=== PATIENT | female | born 1965 | race African-American/Black ===

== ENCOUNTER 2017-01-05 14:44 | Emergency (ER) | payer BC ==
[2017-01-05 14:52] VITALS: BP 149/101; PULSE 94; TEMP 98.3; BMI 33.9
--- NOTE | 2017-01-05 15:49 | PDOC ---
History of Present Illness - General Chief Complaint: Sore Throat Stated Complaint: Throat PAIN Time Seen by Provider: 01/05/17 15:02 History Source: Patient Exam Limitations: No Limitations - History of Present Illness Initial Comments: 01/05/17 15:46 51 yr female with c/o sore throat, for 3 days no fever. Pt states she has a history of post nasal drip has used flonase in the past and it has helped her symptoms. no fever or chills no cough or vomiting. Past History - Past Medical History Allergies/Adverse Reactions: Allergies Allergy/AdvReac Type Severity Reaction Status Date / Time No Known Allergies Allergy Verified 01/05/17 14:46 Home Medications: Ambulatory Orders Mesalamine [Lialda] 1.2 gm PO DAILY 03/16/16 Fluticasone Prop 0.05% Nasal [Flonase -] 1 - 2 spray NS DAILY #1 spray.pump Anemia: Yes (HX OF IRON DEFICIENCY) Asthma: No Cancer: Yes (NECK AREA - BENIGN, RADIATION X 5 WEEKS) Cardiac Disorders: No CVA: No COPD: No CHF: No Dementia: No Diabetes: (IMPAIRED GLUCOSE TOLERANCE) GI Disorders: Yes (CROHN'S COLITIS, COLON POLYPS, HEMORRHOIDS) Disorders: (H/O MENORRHAGIA) HTN: Yes Hypercholesterolemia: Yes Seizures: No Thyroid Disease: No - Surgical History Abdominal Surgery: No Appendectomy: No Cardiac Surgery: No Cholecystectomy: No Lung Surgery: No Neurologic Surgery: No Orthopedic Surgery: Yes (RT KNEE) - Immunization History Immunization Up to Date: Yes (no flu) - Psycho/Social/Smoking Cessation Hx Anxiety: No Suicidal Ideation: No Smoking Status: Yes Smoking History: Former smoker Have you smoked in the past 12 months: No Number of Cigarettes Smoked Daily: 0 Information on smoking cessation initiated: No 'Breaking Loose' booklet given: 04/14/16 Hx Alcohol Use: No Drug/Substance Use Hx: No Substance Use Type: None Hx Substance Use Treatment: No Review of Systems - Review of Systems Able to Perform ROS?: Yes Is the patient limited Turkish proficient: No Constitutional: No: Symptoms Reported HEENTM: Yes: Throat Pain Respiratory: No: Symptoms reported Cardiac (ROS): No: Symptoms Reported ABD/GI: No: Symptoms Reported : No: Symptoms Reported Musculoskeletal: No: Symptoms Reported Integumentary: No: Symptoms Reported Neurological: No: Symptoms reported *Physical Exam - Vital Signs Last Vital Signs Temp Pulse Resp BP Pulse Ox 98.3 F 94 H 20 149/101 95 01/05/17 14:46 01/05/17 14:46 01/05/17 14:46 01/05/17 14:46 01/05/17 14:46 - Physical Exam General Appearance: Yes: Nourished, Appropriately Dressed HEENT: positive: EOMI, AKASH, TMs Normal, Pharynx Normal Neck: positive: Supple Respiratory/Chest: positive: Lungs Clear, Normal Breath Sounds Cardiovascular: positive: Regular Rhythm, Regular Rate Gastrointestinal/Abdominal: positive: Normal Bowel Sounds, Soft Musculoskeletal: positive: Normal Inspection Extremity: positive: Normal Capillary Refill, Normal Inspection, Normal Range of Motion Integumentary: positive: Normal Color, Dry, Warm Neurologic: positive: Fully Oriented, Alert, Normal Mood/Affect, Normal Response , Motor Strength 5/5 Medical Decision Making - Medical Decision Making 01/05/17 15:48 cc: sore throat afebrile, no cough or chest pain will check rapid strep will prescribe flonase *DC/Admit/Observation/Transfer Diagnosis at time of Disposition: Post-nasal drip - Discharge Dispostion Disposition: HOME Condition at time of disposition: Good - Prescriptions Prescriptions: Fluticasone Prop 0.05% Nasal [Flonase -] 1 - 2 spray NS DAILY #1 spray.pump - Referrals Referrals: Frances Sorensen MD [Primary Care Provider] - - Patient Instructions Additional Instructions: take flonase as directed gargle with warm salt water 4-5 times a day follow with ENT for follow up
== END 2017-01-05 16:59 | disposition home or self-care (01) ==
LOC: JERFT 14:44
DX: R09.82 Postnasal drip (principal); I10 Essential (primary) hypertension; E78.00 Pure hypercholesterolemia, unspecified; R73.02 Impaired glucose tolerance (oral); Z86.018 Personal history of other benign neoplasm; Z86.2 Personal history of diseases of the blood and blood-forming organs and certain disorders involving the immune mechanism
CPT/HCPCS: 87070; 87430; 99281-25

== ENCOUNTER 2017-06-02 15:21 | Emergency (ER) | payer BC ==
[2017-06-02 15:33] VITALS: BP 172/80; PULSE 91; TEMP 98.3; BMI 32.8
--- NOTE | 2017-06-02 16:29 | PDOC ---
History of Present Illness - General Chief Complaint: Pain, Acute Stated Complaint: LEFT LEG PAIN Time Seen by Provider: 06/02/17 15:49 History Source: Patient Exam Limitations: No Limitations - History of Present Illness Initial Comments: 06/02/17 16:25 This is a 52yo woman with PMH Crohn's disease, HTN and HLD who presents with pain to left anterolateral allan since 08/05/16. She denies trauma. She has had multiple evaluations for same c/o including 3 ED visits and a fisher sponge hooking. Pain was relieved with orthotics and Voltaren gel. She stopped taking Voltaren gel after 1 use but states it worked well when she used it. Occurred: reports: other (started 08/05/16) Lower Extremity Pain Location: left: leg (anterolateral) Method of Injury: Yes: unknown Modifying Factors: improves with: None Past History - Past Medical History Allergies/Adverse Reactions: Allergies Allergy/AdvReac Type Severity Reaction Status Date / Time No Known Allergies Allergy Verified 06/02/17 15:26 Home Medications: Ambulatory Orders Mesalamine [Lialda] 1.2 gm PO DAILY 03/16/16 Fluticasone Prop 0.05% Nasal [Flonase -] 1 - 2 spray NS DAILY #1 spray.pump Anemia: Yes (HX OF IRON DEFICIENCY) Asthma: No Cancer: Yes (NECK AREA - BENIGN, RADIATION X 5 WEEKS) Cardiac Disorders: No CVA: No COPD: No CHF: No Dementia: No Diabetes: (IMPAIRED GLUCOSE TOLERANCE) GI Disorders: Yes (CROHN'S COLITIS, COLON POLYPS, HEMORRHOIDS) Disorders: (H/O MENORRHAGIA) HTN: Yes Hypercholesterolemia: Yes Seizures: No Thyroid Disease: No - Surgical History Abdominal Surgery: No Appendectomy: No Cardiac Surgery: No Cholecystectomy: No Lung Surgery: No Neurologic Surgery: No Orthopedic Surgery: Yes (RT KNEE) - Immunization History Immunization Up to Date: Yes (no flu) - Psycho/Social/Smoking Cessation Hx Anxiety: No Suicidal Ideation: No Smoking Status: Yes Smoking History: Former smoker Have you smoked in the past 12 months: No Number of Cigarettes Smoked Daily: 2 Information on smoking cessation initiated: No 'Breaking Loose' booklet given: 04/14/16 Hx Alcohol Use: No Drug/Substance Use Hx: No Substance Use Type: None Hx Substance Use Treatment: No Review of Systems - Review of Systems Able to Perform ROS?: Yes Is the patient limited Swedish proficient: No Constitutional: No: Symptoms Reported HEENTM: No: Symptoms Reported Respiratory: No: Symptoms reported Cardiac (ROS): No: Symptoms Reported ABD/GI: No: Symptoms Reported : No: Symptoms Reported Musculoskeletal: Yes: Other (left allan pain) Integumentary: No: Symptoms Reported Neurological: No: Symptoms reported *Physical Exam - Vital Signs Last Vital Signs Temp Pulse Resp BP Pulse Ox 98.3 F 91 H 18 172/80 100 06/02/17 15:26 06/02/17 15:26 06/02/17 15:26 06/02/17 15:26 06/02/17 15:26 - Physical Exam General Appearance: Yes: Appropriately Dressed. No: Apparent Distress HEENT: positive: AKASH, Normal Voice Neck: positive: Trachea midline, Supple Respiratory/Chest: positive: Lungs Clear. negative: Respiratory Distress Cardiovascular: positive: Regular Rhythm, Regular Rate, S1, S2. negative: Murmur Gastrointestinal/Abdominal: positive: Normal Bowel Sounds, Soft. negative: Tender, Organomegaly Musculoskeletal: positive: Normal Inspection. negative: CVA Tenderness Extremity: positive: Normal Capillary Refill. negative: Calf Tenderness ( negative Sharyn's) Integumentary: positive: Normal Color, Dry, Warm Neurologic: positive: yeast maker II-XII NML intact, Fully Oriented, Alert, Motor Strength 5/5. negative: Normal Mood/Affect Medical Decision Making - Medical Decision Making 06/02/17 16:28 A: This is a 52yo woman with PMH HTN and HLD who presents with pain to left anterolateral allan since 08/05/16. She denies trauma. She has had multiple evaluations for same c/o including 3 ED visits and a fisher sponge hooking. Pain was relieved with orthotics and Voltaren gel. She stopped taking Voltaren gel after 1 use but states it worked well when she used it. P: -continue Voltaren gel -discharge 06/02/17 16:34 *DC/Admit/Observation/Transfer Diagnosis at time of Disposition: Allan splints Qualifiers: Encounter type: subsequent encounter Laterality: left Qualified Code(s): S86.892D - Other injury of other muscle(s) and tendon(s) at lower leg level, left leg, subsequent encounter - Discharge Dispostion Disposition: HOME Condition at time of disposition: Stable Admit: No - Patient Instructions Printed Discharge Instructions: Medial Tibial Stress Syndrome Additional Instructions: Use previously prescribed Voltaren gel. Ice affected area as needed. Follow up with Dr. Youngblood. Return to ED for any worsening symptoms or any other reason.
== END 2017-06-02 16:41 | disposition home or self-care (01) ==
LOC: JERFT 15:21
DX: S86.892D Other injury of other muscle(s) and tendon(s) at lower leg level, left leg, subsequent encounter (principal); I10 Essential (primary) hypertension; E78.5 Hyperlipidemia, unspecified; K50.90 Crohn's disease, unspecified, without complications; X58.XXXA Exposure to other specified factors, initial encounter; Y93.9 Activity, unspecified; Y92.9 Unspecified place or not applicable; D50.8 Other iron deficiency anemias; E78.00 Pure hypercholesterolemia, unspecified
CPT/HCPCS: 99281-25

== ENCOUNTER 2017-12-20 11:22 | Emergency (ER) | payer BC ==
[2017-12-20 11:48] VITALS: BP 134/94; PULSE 80; TEMP 98.7; BMI 33.0
--- NOTE | 2017-12-20 12:28 | PDOC ---
History of Present Illness - General Chief Complaint: Sore Throat Stated Complaint: THROAT PAIN Time Seen by Provider: 12/20/17 12:06 History Source: Patient Exam Limitations: No Limitations - History of Present Illness Initial Comments: 12/20/17 12:23 Is a 52-year-old woman with past medical history of Crohn's and hypertension who presents to the emergency department with 1 week of sore throat which she has been controlling with hydration and gthv-nik-[id number] medications. 2 weeks ago the pain became slightly worse and was no longer controlled with OTC medication. She started coughing approximately 2 days ago which is been wet and nonproductive. She used her husbands previously prescribed cough syrup but is unaware of formulation of cough syrup. This did not help with expectoration. She denies fevers, chills, headaches, shortness of breath, chest pain, abdominal pain, nausea, vomiting, diarrhea. PMH: Crohn's disease, hypertension, hyperlipidemia PSH: Remote right knee arthroscopy PMD: [employer] Occupation: legislative aide Past History - Past Medical History Allergies/Adverse Reactions: Allergies Allergy/AdvReac Type Severity Reaction Status Date / Time No Known Allergies Allergy Verified 12/20/17 11:48 Home Medications: Ambulatory Orders Mesalamine [Lialda] 1.2 gm PO DAILY 03/16/16 Fluticasone Prop 0.05% Nasal [Flonase -] 1 - 2 spray NS DAILY #1 spray.pump Amlodipine Besylate 10 mg PO ASDIR 12/20/17 Anemia: Yes (HX OF IRON DEFICIENCY) Asthma: No Cancer: Yes (NECK AREA - BENIGN, RADIATION X 5 WEEKS) Cardiac Disorders: No CVA: No COPD: No CHF: No Dementia: No Diabetes: (IMPAIRED GLUCOSE TOLERANCE) GI Disorders: Yes (CROHN'S COLITIS, COLON POLYPS, HEMORRHOIDS) Disorders: (H/O MENORRHAGIA) HTN: Yes Hypercholesterolemia: Yes Seizures: No Thyroid Disease: No - Surgical History Abdominal Surgery: No Appendectomy: No Cardiac Surgery: No Cholecystectomy: No Lung Surgery: No Neurologic Surgery: No Orthopedic Surgery: Yes (RT KNEE) - Immunization History Immunization Up to Date: Yes (no flu) - Suicide/Smoking/Psychosocial Hx Smoking Status: Yes Smoking History: Never smoked Have you smoked in the past 12 months: No Number of Cigarettes Smoked Daily: 2 Information on smoking cessation initiated: No 'Breaking Loose' booklet given: 04/14/16 Hx Alcohol Use: No Drug/Substance Use Hx: No Substance Use Type: None Hx Substance Use Treatment: No Review of Systems - Review of Systems Able to Perform ROS?: Yes Is the patient limited Bangladeshi proficient: No Constitutional: No: Symptoms Reported HEENTM: Yes: See HPI Respiratory: Yes: See HPI Cardiac (ROS): No: Symptoms Reported ABD/GI: No: Symptoms Reported : No: Symptoms Reported Musculoskeletal: No: Symptoms Reported Integumentary: No: Symptoms Reported Neurological: No: Symptoms reported Endocrine: No: Symptoms Reported Hematologic/Lymphatic: No: Symptoms Reported *Physical Exam - Vital Signs Last Vital Signs Temp Pulse Resp BP Pulse Ox 98.7 F 80 17 134/94 98 12/20/17 11:44 12/20/17 11:44 12/20/17 11:44 12/20/17 11:44 12/20/17 11:44 - Physical Exam General Appearance: Yes: Appropriately Dressed HEENT: positive: Normal ENT Inspection Neck: positive: Trachea midline, Supple. negative: Stridor Respiratory/Chest: positive: Lungs Clear, Normal Breath Sounds. negative: Respiratory Distress, Accessory Muscle Use Cardiovascular: positive: Regular Rhythm, Regular Rate, S1, S2. negative: Edema Gastrointestinal/Abdominal: positive: Normal Bowel Sounds, Soft. negative: Tender Musculoskeletal: positive: Normal Inspection. negative: CVA Tenderness Integumentary: positive: Normal Color, Dry, Warm Neurologic: positive: Fully Oriented, Alert, Normal Response, Motor Strength 5/5 Medical Decision Making - Medical Decision Making 12/20/17 12:28 A/P: 52-year-old woman with past medical history of Crohn's, hypertension, hyperlipidemia who presents with 1 week of sore throat and wet nonproductive cough. Patient complaining of inability to expectorate. Oropharynx clear without erythema or exudates noted. No sinus tenderness appreciated. No stridor appreciated Lungs clear to auscultation bilaterally. Discharge home *DC/Admit/Observation/Transfer Diagnosis at time of Disposition: Upper respiratory infection Qualifiers: URI type: unspecified viral URI Qualified Code(s): J06.9 - Acute upper respiratory infection, unspecified - Discharge Dispostion Disposition: HOME Condition at time of disposition: Stable Admit: No - Referrals Referrals: Ariane Murdock MD [Staff Physician] - - Patient Instructions Printed Discharge Instructions: DI for Viral Upper Respiratory Infection -- Adult Additional Instructions: Rest, drink lots of fluids: Teas, water, soups, Pedialyte Saltwater gargles Steamy showers/seem to face break up mucus Avoid contact with others until fevers and cough resolved Lots of handwashing and good hygiene Continue ckza-[id number] medications for symptomatic relief Tylenol or Motrin for fever and pain Mucinex 1200mg every 12 hours as needed for mucous. Followup with private physician in one to 2 days as needed Return to emergency department for worsened symptoms, fevers, dehydration - Post Discharge Activity Forms/Work/School Notes: Back to Work
== END 2017-12-20 12:35 | disposition home or self-care (01) ==
LOC: JERFT 11:22
DX: J06.9 Acute upper respiratory infection, unspecified (principal); I10 Essential (primary) hypertension; E78.5 Hyperlipidemia, unspecified; K50.90 Crohn's disease, unspecified, without complications
CPT/HCPCS: 99281-25

== ENCOUNTER 2019-09-18 12:08 | Emergency (ER) | payer BC ==
[2019-09-18 12:17] VITALS: BP 134/70; PULSE 62; TEMP 97.6; BMI 33.7
--- NOTE | 2019-09-18 13:07 | PDOC ---
History of Present Illness - General Chief Complaint: Sore Throat Stated Complaint: COLD SYMPTOMS/COUGHING Time Seen by Provider: 09/18/19 12:15 - History of Present Illness Initial Comments: 09/18/19 13:05 54-year-old female with a past medical history of hypertension dyslipidemia presents for evaluation of cough without systemic symptoms x3 days she also claims of sore throat Past History - Past Medical History Allergies/Adverse Reactions: Allergies Allergy/AdvReac Type Severity Reaction Status Date / Time No Known Allergies Allergy Verified 09/18/19 12:17 Home Medications: Ambulatory Orders Mesalamine [Lialda] 1.2 gm PO DAILY 03/16/16 Amlodipine Besylate 5 mg PO ASDIR 12/20/17 Pravastatin Sodium 10 mg PO DAILY 01/19/18 Tramadol HCl 50 mg PO QID PRN #20 tablet MDD 4 01/19/18 Anemia: Yes (HX OF IRON DEFICIENCY) Asthma: No Cancer: Yes (NECK AREA - BENIGN, RADIATION X 5 WEEKS) Cardiac Disorders: No CVA: No COPD: No CHF: No Dementia: No Diabetes: No (IMPAIRED GLUCOSE TOLERANCE) GI Disorders: Yes (CROHN'S COLITIS, COLON POLYPS, HEMORRHOIDS) Disorders: (H/O MENORRHAGIA) HTN: Yes Hypercholesterolemia: Yes Liver Disease: No Seizures: No Thyroid Disease: No - Surgical History Abdominal Surgery: No Appendectomy: No Cardiac Surgery: No Cholecystectomy: No Lung Surgery: No Neurologic Surgery: No Orthopedic Surgery: Yes (RT KNEE) - Immunization History Immunization Up to Date: Yes (no flu) - Psycho Social/Smoking Cessation Hx Smoking Status: Yes Smoking History: Current every day smoker Have you smoked in the past 12 months: No Number of Cigarettes Smoked Daily: 5 Information on smoking cessation initiated: Yes 'Breaking Loose' booklet given: 04/14/16 Hx Alcohol Use: No Drug/Substance Use Hx: No Substance Use Type: Alcohol, Marijuana Hx Substance Use Treatment: No Review of Systems - Review of Systems Constitutional: No: Fever Respiratory: Yes: Cough *Physical Exam - Vital Signs Last Vital Signs Temp Pulse Resp BP Pulse Ox 97.6 F 62 19 134/70 98 09/18/19 12:14 09/18/19 12:14 09/18/19 12:14 09/18/19 12:14 09/18/19 12:14 - Physical Exam Comments: 09/18/19 13:06 GENERAL: The patient is awake, alert, and fully oriented, in no acute distress. HEAD: Normal with no signs of trauma. EYES: sclera anicteric, conjunctiva clear. ENT: Ears normal NECK: Normal range of motion LUNGS: Breath sounds equal, clear to auscultation bilaterally. No wheezes, and no crackles. HEART: S1 and S2 without murmur, rub or gallop. ABDOMEN: Soft, nontender, normoactive bowel sounds. No guarding, no rebound. No masses. EXTREMITIES: Normal range of motion, no edema. No clubbing or cyanosis. No cords, erythema, or tenderness. NEUROLOGICAL: Cranial nerves II through XII grossly intact. Normal speech, normal gait. PSYCH: Normal mood, normal affect. SKIN: Warm, Dry, normal turgor, no rashes or lesions noted. ED Treatment Course - RADIOLOGY Radiology Studies Ordered: Category Date Time Status CHEST PA & LAT [RAD] Stat Radiology 09/18/19 12:45 Taken Medical Decision Making - Medical Decision Making 09/18/19 13:18 Chest x-ray clear most likely viral upper respiratory infection supportive care follow-up with PCP Discharge - Discharge Information Problems reviewed: Yes Clinical Impression/Diagnosis: Upper respiratory infection Condition: Stable Disposition: HOME - Admission No - Follow up/Referral Referrals: Kiesha Rocha MD [Primary Care Provider] - - Patient Discharge Instructions Patient Printed Discharge Instructions: Common Cold Additional Instructions: Return to the emergency room for worsening symptoms. Follow-up with your primary care physician in 1 to 2 days for further evaluation and treatment options. - Post Discharge Activity
== END 2019-09-18 13:23 | disposition home or self-care (01) ==
LOC: JERFT 12:08
DX: J06.9 Acute upper respiratory infection, unspecified (principal); F17.210 Nicotine dependence, cigarettes, uncomplicated; I10 Essential (primary) hypertension
CPT/HCPCS: 71046-TC-FY; 99281-25

== ENCOUNTER 2019-09-26 15:39 | Emergency (ER) | payer BC ==
[2019-09-26 15:52] VITALS: BP 169/95; PULSE 76; TEMP 98.2; BMI 33.7
--- NOTE | 2019-09-26 16:31 | PDOC ---
History of Present Illness - General Chief Complaint: Cold Symptoms Stated Complaint: COUGHING/ GLANDS SWOLLEN Time Seen by Provider: 09/26/19 15:56 - History of Present Illness Initial Comments: 09/26/19 16:25 CHIEF COMPLAINT: cough HISTORY OF PRESENT ILLNESS: 54 yo F with hx of Crohn's, HTN and HLD presents to fast track with persistent cough. Patient was seen in this ED 8 days ago and diagnosed with a viral URI but reports her symptoms have not resolved even after taking Mucinex. Patient describes cough as dry but that her phlegm is "trying to come out." Patient denies any systemic symptoms including fever, chills, vomiting diarrhea. No recent travel or sick contacts. PAST MEDICAL HISTORY: Denies past medical history FAMILY HISTORY: Denies SOCIAL HISTORY: Denies tobacco, alcohol, illicit drug use. SURGICAL HISTORY: Denies ALLERGIES: No known drug allergies REVIEW OF SYSTEMS General/Constitutional: Denies fever or chills. Denies weakness, weight change. HEENT: Denies change in vision. Denies ear pain or discharge. Denies sore throat. Cardiovascular: Denies chest pain or shortness of breath. Respiratory: Cough x 9 days. Gastrointestinal: Denies nausea, vomiting, diarrhea or constipation. Denies rectal bleeding. Genitourinary: Denies dysuria, frequency, or change in urination. Musculoskeletal: Denies joint or muscle swelling or pain. Denies neck or back pain. Skin and breasts: Denies rash or easy bruising. Neurologic: Denies headache, vertigo, loss of consciousness, or loss of sensation. Psychiatric: Denies depression or anxiety. PHYSICAL EXAM General Appearance: Well-appearing, appropriately dressed. No apparent distress , no intoxication. HEENT: EOMI, PERRLA, normal ENT inspection, normal voice, TMs normal, pharynx normal. No conjunctival pallor. No photophobia, scleral icterus. Neck: Supple. Trachea midline. No tenderness, rigidity, carotid bruit, stridor , lymphadenopathy, or thyromegaly. Respiratory/Chest: Lungs CTAB. No shortness of breath, chest tenderness, respiratory distress, accessory muscle use. No crackles, rales, rhonchi, stridor , wheezing, dullness Cardiovascular: RRR. S1, S2. No JVD, murmur, bradycardia, tachycardia. Vascular Pulses: Dorsalis-Pedis (R): 2+, Dorsalis-Pedis (L): 2+ Gastrointestinal/Abdominal: Normal bowel sounds. Abdomen soft, non-distended. No tenderness or rebound tenderness. No organomegaly, pulsatile mass, guarding , hernia, hepatomegaly, splenomegaly. Lymphatic: No adenopathy, tenderness. Musculoskeletal/Extremities: Normal inspection. FROM of all extremities, normal capillary refill. Pelvis Stable. No CVA tenderness. No tenderness to extremities, pedal edema, swelling, erythema or deformity. Integumentary: Appropriate color, dry, warm. No cyanosis, erythema, jaundice or rash Neurologic: technician plant and maintenance II-XII intact. Fully oriented, alert. Appropriate mood/affect. Motor strength 5/5. No appreciable EOM palsy, facial droop or sensory deficit. 09/26/19 16:36 Past History - Past Medical History Allergies/Adverse Reactions: Allergies Allergy/AdvReac Type Severity Reaction Status Date / Time No Known Allergies Allergy Verified 09/26/19 15:48 Home Medications: Ambulatory Orders Mesalamine [Lialda] 1.2 gm PO DAILY 03/16/16 Amlodipine Besylate 5 mg PO ASDIR 12/20/17 Pravastatin Sodium 20 mg PO DAILY 01/19/18 Ergocalciferol (Vitamin D2) [Vitamin D2] 50,000 unit PO WEEKLY 09/18/19 Azithromycin [Zithromax 250mg Tablets -] 250 mg PO UTDICT #6 tab 09/26/19 Benzonatate [Tessalon Pearls -] 100 mg PO TID #21 capsule 09/26/19 Phenylephrine HCl [Sinus PE Decongestant] 10 mg PO TID #15 tablet 09/26/19 Anemia: Yes (HX OF IRON DEFICIENCY) Asthma: No Cancer: Yes (NECK AREA - BENIGN, RADIATION X 5 WEEKS) Cardiac Disorders: No CVA: No COPD: No CHF: No Dementia: No Diabetes: No (IMPAIRED GLUCOSE TOLERANCE) GI Disorders: Yes (CROHN'S COLITIS, COLON POLYPS, HEMORRHOIDS) Disorders: (H/O MENORRHAGIA) HTN: Yes Hypercholesterolemia: Yes Liver Disease: No Seizures: No Thyroid Disease: No - Surgical History Abdominal Surgery: No Appendectomy: No Cardiac Surgery: No Cholecystectomy: No Lung Surgery: No Neurologic Surgery: No Orthopedic Surgery: Yes (RT KNEE) - Immunization History Immunization Up to Date: Yes (no flu) - Psycho Social/Smoking Cessation Hx Smoking Status: Yes Smoking History: Never smoked Have you smoked in the past 12 months: No Number of Cigarettes Smoked Daily: 5 'Breaking Loose' booklet given: 04/14/16 Hx Alcohol Use: No Drug/Substance Use Hx: No Substance Use Type: Alcohol, Marijuana Hx Substance Use Treatment: No *Physical Exam - Vital Signs Last Vital Signs Temp Pulse Resp BP Pulse Ox 98.2 F 76 18 169/95 97 09/26/19 15:44 09/26/19 15:44 09/26/19 15:44 09/26/19 15:44 09/26/19 15:44 Discharge - Discharge Information Problems reviewed: Yes Clinical Impression/Diagnosis: Upper respiratory infection Qualifiers: URI type: unspecified URI Qualified Code(s): J06.9 - Acute upper respiratory infection, unspecified Condition: Stable Disposition: HOME - Admission No - Additional Discharge Information Prescriptions: Azithromycin [Zithromax 250mg Tablets -] 250 mg PO UTDICT #6 tab Benzonatate [Tessalon Pearls -] 100 mg PO TID #21 capsule Phenylephrine HCl [Sinus PE Decongestant] 10 mg PO TID #15 tablet - Follow up/Referral Referrals: Kiesha Rocha MD [Primary Care Provider] - - Patient Discharge Instructions Patient Printed Discharge Instructions: DI for Cough -- Adult Additional Instructions: Please take medications as prescribed. As discussed, it is not recommended to start the antibiotics unless your symptoms persist for another 3-5 days. If you develop fever, chills, vomiting, diarrhea, or any new or worsening symptoms, please return to the ER. - Post Discharge Activity
== END 2019-09-26 16:41 | disposition home or self-care (01) ==
LOC: JERFT 15:39 → JER 15:39 → JERFT 16:41
DX: J06.9 Acute upper respiratory infection, unspecified (principal); B97.89 Other viral agents as the cause of diseases classified elsewhere; I10 Essential (primary) hypertension; E78.5 Hyperlipidemia, unspecified; R73.02 Impaired glucose tolerance (oral); D50.9 Iron deficiency anemia, unspecified; Z87.19 Personal history of other diseases of the digestive system; Z85.89 Personal history of malignant neoplasm of other organs and systems; Z92.3 Personal history of irradiation; Z87.42 Personal history of other diseases of the female genital tract
CPT/HCPCS: 99281-25

== ENCOUNTER 2019-10-07 05:04 | Day surgery (SDC) | payer BC ==
[2019-09-18 17:52] VITALS: BMI 33.7
[2019-10-07] MEDS ORDERED: PROMETHAZINE HCL 25 MG/1 ML VIAL IVPUSH PRN (08:09)
[2019-10-07] MEDS ORDERED: oxyCODONE HCL 5 MG TABLET PO PRN (08:09)
[2019-10-07] MEDS ORDERED: ONDANSETRON 4 MG/2 ML VIAL IVPUSH PRN (08:09)
[2019-10-07] MEDS ORDERED: LACTATED RINGERS SOLUTION 1,000 ML IV SCH (08:15)
[2019-10-07 08:29] VITALS: BP 141/98; PULSE 71; TEMP 98.1
== END 2019-10-07 09:17 | disposition home or self-care (01) ==
LOC: JASU-SURG 05:04
PROVIDERS: ATTEND Obstetrics & Gynecology
DX: Z53.8 Procedure and treatment not carried out for other reasons (principal)
CPT/HCPCS: 86850; 86900; 86901

== ENCOUNTER 2019-10-21 05:25 | Day surgery (SDC) | payer BC ==
[2019-10-15 15:52] VITALS: BMI 33.7
[2019-10-21] MEDS ORDERED: SUCCINYLCHOLINE CHLORIDE 200 MG/10 ML SYRINGE ONE (07:42)
[2019-10-21] MEDS ORDERED: PROPOFOL 20 ML ONE ×2 (07:42)
--- NOTE | 2019-10-21 08:21 | HP ---
Admitting History and Physical - Admission History of Present Illness: 54yo here for Diagnostic Hysteroscopy, D&C. LMP over one year ago and then started having almost daily spotting and cramping , Bleeding daily almost since 10/04/19. No bleeding or cramping noted this morning. 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 ...: No Infectious Disease: No: AIDS, C-Diff, Herpes Zoster, HIV, MRSA, STD's, Tuberculosis, VREF, Other Psych: No: Addictions, Anxiety, Bipolar, Depression, Panic, Psychosis, Schizophrenia, Other Rheumatology: No: Fibromyalgia, Gout, Lupus, Rheumatoid Arthritis, Sarcoidosis, Vasculitis, Other - Past Surgical History Additional Past Surgical History: Orthopedic surgery, R Knee - Smoking History Smoking history: Current some day smoker Have you smoked in the past 12 months: No Aproximately how many cigarettes per day: 5 - Alcohol/Substance Use Hx Alcohol Use: No History of Substance Use: reports: None - Social History Usual Living Arrangement: Yes: With Spouse Do you think of yourself as: Straight/Heterosexual ADL: Independent History of Recent Travel: No Home Medications - Allergies Allergies/Adverse Reactions: Allergies Allergy/AdvReac Type Severity Reaction Status Date / Time No Known Allergies Allergy Verified 10/21/19 07:10 - Home Medications Home Medications: Ambulatory Orders Mesalamine [Lialda] 1.2 gm PO DAILY 03/16/16 Amlodipine Besylate 5 mg PO ASDIR 12/20/17 Pravastatin Sodium 20 mg PO DAILY 01/19/18 Ergocalciferol (Vitamin D2) [Vitamin D2] 50,000 unit PO WEEKLY 09/18/19 Review of Systems - Review of Systems Constitutional: denies: No Symptoms, Chills, Diaphoresis, Fever, Lethargy, Loss of Appetite, Malaise, Night Sweats, Unintentional Wgt. Loss, Weakness, Other Cardiovascular: denies: No Symptoms, Chest Pain, Edema, Palpitations, Shortness of Breath, Other Respiratory: denies: No Symptoms, Cough, Exercise Intolerance, Hemoptysis, Orthopnea, PND, Snoring, SOB, SOB on Exertion, Wheezing, Other Gastrointestinal: denies: No Symptoms, Abdominal Pain, Bloating, Constipation, Diarrhea, Dysphagia, Indigestion, Melena, Nausea, Rectal Bleeding, Vomiting, Vomiting Blood, Other Physical Examination Vital Signs: Vital Signs Temperature 98.1 F 10/21/19 07:10 Pulse Rate 68 10/21/19 07:10 Respiratory Rate 20 10/21/19 07:10 Blood Pressure 133/68 10/21/19 07:10 O2 Sat by Pulse Oximetry (%) 96 10/21/19 07:05 Constitutional: Yes: Well Nourished, No Distress, Calm Eyes: Yes: WNL, Conjunctiva Clear, EOM Intact HENT: Yes: WNL, Atraumatic, Normocephalic Neck: Yes: WNL, Supple, Trachea Midline Cardiovascular: Yes: WNL, Regular Rate and Rhythm Respiratory: Yes: WNL, Regular, CTA Bilaterally Gastrointestinal: Yes: WNL, Normal Bowel Sounds Musculoskeletal: Yes: WNL Extremities: Yes: WNL Edema: No Integumentary: Yes: WNL Neurological: Yes: WNL, Alert, Oriented ...Motor Strength: WNL Psychiatric: Yes: WNL Problem List - Problems (1) Postmenopausal bleeding Code(s): N95.0 - POSTMENOPAUSAL BLEEDING Assessment/Plan 54yo with PMB here for diagnostic Hysteroscopy, D&C Reasoning for procedure reviewed, bleeding and thickened ES. Declined office MB as it would not be therapeutic Risk reviewed, bleeding, infection, uterine perforation IVFs TEDS All questions answered; consent signed Pasha Huerta MD
--- NOTE | 2019-10-21 09:23 | OP ---
Operative Note - Note: Operative Date: 10/21/19 Pre-Operative Diagnosis: Postmenopausal Bleeding Operation: Diagnostic Hysteroscopy, Dilation and Curretage, Polypectomy Findings: Normal vagina, normal endocervical canal, 2 submucosal fibroids anteriorly, right polypoid tissue around the ostia Normal left ostia Right ostia initially obscured by polypoid mass Post-Operative Diagnosis: Same as Pre-op Surgeon: Serena Huerta Anesthesia: MAC Specimens Removed: Endometrial Curretage Estimated Blood Loss (mls): 50 (350 fluid deficit) Operative Report Dictated: Yes
[2019-10-21] MEDS ORDERED: oxyCODONE HCL 5 MG TABLET PO PRN (09:44)
[2019-10-21] MEDS ORDERED: ONDANSETRON 4 MG/2 ML VIAL IVPUSH PRN (09:44)
[2019-10-21] MEDS ORDERED: LACTATED RINGERS SOLUTION 1,000 ML IV SCH (09:45)
[2019-10-21 10:11] VITALS: TEMP 98
[2019-10-21 11:44] VITALS: BP 123/72; PULSE 65
--- NOTE | 2019-10-21 11:46 | OP ---
DATE OF OPERATION: 10/21/2019 PREOPERATIVE DIAGNOSIS: Postmenopausal bleeding. POSTOPERATIVE DIAGNOSIS: Postmenopausal bleeding. PROCEDURE: Diagnostic hysteroscopy, dilation and curettage, polypectomy. IV FLUIDS: Per anesthesia record. ESTIMATED BLOOD LOSS: 50 mL. FLUID DEFICIT: 350 mL. SURGEON: Serena Huerta MD ANESTHESIA: MAC. FINDINGS: Normal vagina. Normal endocervical canal. Two submucosal fibroids noted anteriorly and right polypoid tissue mass around the patient's right ostia. The normal left ostia. The right ostia was initially was obscured by the polypoid mass. Noted to be normal once removed. COMPLICATIONS: None. CONDITION: Stable to recovery room. NATURE OF THE PROCEDURE: After the appropriate consents were signed, the patient was taken to the operating room. Anesthesia was administered. She was placed in dorsal lithotomy position. Surgical field was prepped and draped in normal sterile fashion. A time-out was performed confirming correct patient and procedure. Sterile speculum was inserted into the vagina with good visualization of the cervix. Anterior lip of the cervix was grasped with a tenaculum. The cervix was then dilated with the Simpson dilators up to 19 to accommodate the hysteroscope. The diagnostic hysteroscope was introduced under fluid distention. Normal endocervical canal was noted. Upon entry and descension into the uterine cavity, 2 submucosal fibroids were noted anteriorly. Many large polypoid protruding mass was noted obstructing the patient's right ostia. The left ostia appeared normal. The hysteroscope was removed. Polyp forceps were introduced. Several passed and scant tissue removed and curettage was introduced and in several passes tissue was removed. The polyp forceps were reintroduced, and tissue was continued to be removed. Hysteroscope was then re-introduced again under fluid distention to confirm complete removal of the mass; however, the base of the right mass still persisted, so the hysteroscope was then removed and, again, several passes of the curettage and polyp forceps were done until tissue was no longer received. Hysteroscope was then re-introduced 1 last time, 90% of the polypoid mass was noted to be removed. The right ostia appeared normal. Hysteroscope was then removed. Single-tooth tenaculum was removed off the anterior lip of the cervix, which was noted to be normal and hemostatic. Speculum was then removed. All sponge lap counts were correct x3. The patient did not receive any antibiotics at the start of the procedure. She was taken from the operating room to the recovery area in stable condition. MD JACOB DEGROOT/[id number]
--- NOTE | 2019-10-22 13:54 | PATH ---
Surgical Pathology Report Patient Name: GLYNN MANCERA [facility]. Rec. #: [id number] /Age/Gender: 1965 (Age: 54) / F Account: [id number] Location: [facility] SURGICAL Taken: 10/21/2019 Received: 10/21/2019 Reported: 10/22/2019 Physicians: Serena Huerta Specimen(s) Received ENDOMETRIAL CURETTINGS Clinical History Postmenopausal bleeding Final Diagnosis ENDOMETRIAL CURETTINGS: FRAGMENTS OF ENDOMETRIAL POLYPS. SEPARATE SCANTY FRAGMENTS OF SUPERFICIAL ENDOMETRIAL GLANDS, ENDOMETRIAL STROMA, AND UNREMARKABLE SQUAMOUS EPITHELIUM. Electronically Signed Patti Pettit M.D. Gross Description Received in formalin labeled "endometrial curettings," is a 4.0 x 2.8 x 0.3 cm aggregate of alaniz-red soft tissue fragments admixed with blood clot. The formalin is filtered and the specimen is entirely submitted in 2 cassettes. /10/21/2019 saudi10/21/2019
== END 2019-10-21 11:30 | disposition home or self-care (01) ==
LOC: JASU-SURG 05:25
PROVIDERS: ATTEND Obstetrics & Gynecology
PROC: 0UJD8ZZ Inspection of Uterus and Cervix, Via Natural or Artificial Opening Endoscopic (ICD-10-PCS; 2019-10-21)
PROC: 0UB97ZX Excision of Uterus, Via Natural or Artificial Opening, Diagnostic (ICD-10-PCS; principal; 2019-10-21 08:36)
PROC: 0UDB7ZX Extraction of Endometrium, Via Natural or Artificial Opening, Diagnostic (ICD-10-PCS; 2019-10-21 08:36)
DX: N95.0 Postmenopausal bleeding (principal); D25.0 Submucous leiomyoma of uterus; N84.0 Polyp of corpus uteri
CPT/HCPCS: 88305-TC; 94760

== ENCOUNTER 2019-12-09 12:33 | Emergency (ER) | payer BC ==
--- NOTE | 2019-12-09 12:48 | PDOC ---
Rapid Medical Evaluation Time Seen by Provider: 12/09/19 12:48 Medical Evaluation: Allergies Allergy/AdvReac Type Severity Reaction Status Date / Time No Known Allergies Allergy Verified 12/09/19 12:48 12/09/19 12:48 I performed a brief in-person evaluation of this patient. 54-year-old female smoker with HTN, HLD, Crohn's disease presenting with 5 days of dry cough, fevers/chills. No chest pain or SOB. Works at a school. Pertinent physical exam findings: +Rhinorrhea. Clear lungs. V/s unremarkable. I have ordered the following: None. Patient to proceed to FT for further evaluation. 12/09/19 12:49 Discharge Disposition - Diagnosis URI (upper respiratory infection) - Referrals - Patient Instructions - Post Discharge Activity
[2019-12-09 12:51] VITALS: BP 133/79; PULSE 82; TEMP 98; BMI 33.4
--- NOTE | 2019-12-09 14:07 | PDOC ---
History of Present Illness - General Chief Complaint: Cold Symptoms Stated Complaint: Cold Symptoms Time Seen by Provider: 12/09/19 12:48 - History of Present Illness Initial Comments: 12/09/19 14:06 54-year-old female with a past medical history of Crohn's disease presents for evaluation of flulike symptoms x5 days Past History - Past Medical History Allergies/Adverse Reactions: Allergies Allergy/AdvReac Type Severity Reaction Status Date / Time No Known Allergies Allergy Verified 12/09/19 12:48 Home Medications: Ambulatory Orders Mesalamine [Lialda] 1.2 gm PO DAILY 03/16/16 Amlodipine Besylate 5 mg PO ASDIR 12/20/17 Pravastatin Sodium 20 mg PO DAILY 01/19/18 Ergocalciferol (Vitamin D2) [Vitamin D2] 50,000 unit PO WEEKLY 09/18/19 Guaifenesin Dm [Mucinex Dm -] 1 tab PO BID #60 tab.er.12h 12/09/19 Lurasidone HCl [Latuda] 0 mg PO DAILY 12/09/19 Anemia: Yes (HX OF IRON DEFICIENCY) Asthma: No Cancer: Yes (NECK AREA - BENIGN, RADIATION X 5 WEEKS) Cardiac Disorders: No CVA: No COPD: No CHF: No Dementia: No Diabetes: No (IMPAIRED GLUCOSE TOLERANCE) GI Disorders: Yes (CROHN'S COLITIS, COLON POLYPS, HEMORRHOIDS) Disorders: (H/O MENORRHAGIA) HTN: Yes Hypercholesterolemia: Yes Liver Disease: No Seizures: No Thyroid Disease: No - Surgical History Abdominal Surgery: No Appendectomy: No Cardiac Surgery: No Cholecystectomy: No Lung Surgery: No Neurologic Surgery: No Orthopedic Surgery: Yes (RT KNEE) - Immunization History Immunization Up to Date: Yes (no flu) - Psycho Social/Smoking Cessation Hx Smoking Status: Yes Smoking History: Current every day smoker Have you smoked in the past 12 months: Yes Number of Cigarettes Smoked Daily: 5 Information on smoking cessation initiated: No 'Breaking Loose' booklet given: 10/15/19 Hx Alcohol Use: No Drug/Substance Use Hx: No Substance Use Type: None Hx Substance Use Treatment: No Review of Systems - Review of Systems Constitutional: Yes: Chills, Fever, Malaise, Night Sweats Respiratory: Yes: Cough *Physical Exam - Vital Signs Last Vital Signs Temp Pulse Resp BP Pulse Ox 98.0 F 82 18 133/79 97 12/09/19 12:48 12/09/19 12:48 12/09/19 12:48 12/09/19 12:48 12/09/19 12:48 - Physical Exam 12/09/19 14:06 GENERAL: The patient is awake, alert, and fully oriented, in no acute distress. HEAD: Normal with no signs of trauma. EYES: sclera anicteric, conjunctiva clear. ENT: Ears normal tympanic membranes normal oropharynx clear uvula midline NECK: Normal range of motion LUNGS: Breath sounds equal, clear to auscultation bilaterally. No wheezes, and no crackles. HEART: S1 and S2 without murmur, rub or gallop. ABDOMEN: Soft, nontender, normoactive bowel sounds. No guarding, no rebound. No masses. EXTREMITIES: Normal range of motion, no edema. No clubbing or cyanosis. No cords, erythema, or tenderness. NEUROLOGICAL: Cranial nerves II through XII grossly intact. Normal speech, normal gait. PSYCH: Normal mood, normal affect. SKIN: Warm, Dry, normal turgor, no rashes or lesions noted. Medical Decision Making - Medical Decision Making 12/09/19 14:06 Time off of work requested. Patient also requested a prescription for Mucinex. Viral upper respiratory infection follow-up with primary care provider Discharge - Discharge Information Problems reviewed: Yes Clinical Impression/Diagnosis: URI (upper respiratory infection) Condition: Stable Disposition: HOME - Admission No - Additional Discharge Information Prescriptions: Guaifenesin Dm [Mucinex Dm -] 1 tab PO BID #60 tab.er.12h - Follow up/Referral Referrals: Kiesha Rocha MD [Primary Care Provider] - - Patient Discharge Instructions Patient Printed Discharge Instructions: DI for Viral Upper Respiratory Infection -- Adult Additional Instructions: Please take the Mucinex as directed. Return to the emergency room for worsening symptoms. Tylenol as directed for fever and chills. Follow-up with your primary care physician in 2 to 3 days for further evaluation and treatment options. - Post Discharge Activity Work/Back to School Note: Back to Work
== END 2019-12-09 14:23 | disposition home or self-care (01) ==
LOC: JERFT 12:33
DX: J06.9 Acute upper respiratory infection, unspecified (principal); B97.89 Other viral agents as the cause of diseases classified elsewhere; I10 Essential (primary) hypertension; E78.5 Hyperlipidemia, unspecified; Z87.19 Personal history of other diseases of the digestive system; F17.210 Nicotine dependence, cigarettes, uncomplicated; Z86.2 Personal history of diseases of the blood and blood-forming organs and certain disorders involving the immune mechanism; Z87.42 Personal history of other diseases of the female genital tract; Z85.89 Personal history of malignant neoplasm of other organs and systems
CPT/HCPCS: 99282-25

== ENCOUNTER 2024-09-19 11:39 | Emergency (ER) | payer BC ==
[2024-09-19 11:51] VITALS: BP 156/97; PULSE 71; RESP 18; TEMP 97.7; BMI 32.9
[2024-09-19 14:10] LABS: BASO % 0.4 % (0-2.0); EOS % 2.5 % (0-4.5); HEMATOCRIT 37.3 % (32.4-45.2); HEMOGLOBIN 12.4 GM/dL (10.7-15.3); LYMPH % 39.6 % (8-40); MCHC 33.1 g/dl (32.0-36.0); MEAN CELL VOLUME 90.6 fl (80-96); MEAN PLT VOLUME 7.6 fl (7.5-11.1); MONO % 9.6 % (3.8-10.2); NEUT % 47.9 % (42.8-82.8); PLATELET COUNT 249 10^3/uL (134-434); RBC 4.12 M/mm3 (3.60-5.2); RDW 14.7 % (11.6-15.6); WHITE BLOOD COUNT 8.1 K/mm3 (4.0-10.0)
[2024-09-19 14:32] LABS: POTASSIUM 3.9 mmol/L (3.5-5.1)
[2024-09-19 14:34] LABS: ALBUMIN 3.6 g/dl (3.4-5.0); BLOOD UREA NITROGEN 10.3 mg/dL (7-18); CALCIUM 9.5 mg/dL (8.5-10.1)
[2024-09-19 14:37] LABS: CREATININE 0.9 mg/dL (0.55-1.3)
[2024-09-19 14:39] LABS: BILIRUBIN,TOTAL 0.3 mg/dL (0.2-1); TOT PROT 7.5 g/dl (6.4-8.2)
== END 2024-09-19 18:46 | disposition left against medical advice (07) ==
LOC: JER 11:39
DX: M54.2 Cervicalgia (principal); R20.2 Paresthesia of skin
CPT/HCPCS: 36415; 70491-TC; 71046-TC-FY; 80053; 84484; 85025; 93005; 93010; 99285-25